=== PATIENT | male | born 1945 | race Native Hawaiian/Other Pacific Islander ===

== ENCOUNTER 2020-01-19 10:20 | Outpatient (CLI) | payer OTHER | END 2020-01-19 19:02 | disposition home or self-care (01) | LOC: LABW 10:20 | DX: K64.0 First degree hemorrhoids (principal) | CPT/HCPCS: 82272 ==

== ENCOUNTER 2021-01-16 11:15 | Outpatient (CLI) | payer OTHER | END 2021-01-16 21:52 | disposition home or self-care (01) | LOC: LABW 11:15 | PROVIDERS: ATTEND Internal Medicine Gastroenterology | DX: K64.0 First degree hemorrhoids (principal) | CPT/HCPCS: 82272 ==

== ENCOUNTER 2022-01-22 09:45 | Outpatient (CLI) | payer OTHER | END 2022-01-22 18:58 | disposition home or self-care (01) | LOC: LABW 09:45 | PROVIDERS: ATTEND Internal Medicine Gastroenterology | DX: K64.0 First degree hemorrhoids (principal) | CPT/HCPCS: 82272 ==